=== PATIENT | male | born 1965 | race Hispanic/Latino ===

== ENCOUNTER 2021-09-27 21:22 | Emergency (ER) | payer BC ==
[2021-09-27] MEDS ORDERED: SODIUM CHLORIDE 0.9% 1000 ML 1,000 ML IV ONE (22:46)
[2021-09-27] MEDS ORDERED: ONDANSETRON 4 MG/2 ML INJ IV ONE (22:50)
--- NOTE | 2021-09-27 22:56 | Emergency Department Report ---
HPI - General Chief Complaint: Dizziness Time Seen by Provider: 09/27/21 22:34 - HPI HPI: Room 21 Patient is a 55-year-old male present with chief complaint of dizziness. Patient states he flew in from [facility] yesterday was at the airport prepar ng to leave back to [place]. Patient states at 1800 he consumed a tea the contained alicia, turmeric and CBD oil patient states approximate 1 hour later after eating some French food he began to feel dizzy and developed a dry mouth. The patient states he left the airport and went to his hotel and developed chills and felt "out of it." Patient states he has some nausea but no vomiting. Patient still complains of a dry mouth. Patient denies any other ingestions. Patient denies pruritus or rash. ED Past Medical Hx - Past Medical History Previous Medical History?: Yes Hx Hypertension: Yes Hx of Cancer: Yes (Melanoma, basal cell skin CA) - Surgical History Past Surgical History?: Yes Additional Surgical History: Excision of skin cancer - Family History Family history: no significant - Social History Smoking Status: Never Smoker Substance Use Type: None (Denies illicit drug use), Alcohol (Moderate) ED Review of Systems ROS: Stated complaint: DIZZY/DRYMOUTH Other details as noted in HPI Constitutional: chills Eyes: denies: eye pain ENT: other (Dry mouth) Respiratory: no symptoms reported Cardiovascular: palpitations Endocrine: no symptoms reported Gastrointestinal: nausea. denies: vomiting Genitourinary: denies: dysuria Musculoskeletal: denies: back pain Neurological: other (Dizziness). denies: headache Physical Exam - Physical Exam Vital Signs: Vital Signs 09/27/21 21:23 Temperature 98 F Pulse Rate 70 Respiratory 18 Rate Blood Pressure 140/90 O2 Sat by Pulse 96 Oximetry Physical Exam: GENERAL: The patient is well-developed well-nourished male lying on stretcher not appearing to be in acute distress. [] HEENT: Normocephalic. Atraumatic. Extraocular motions are intact. Patient has moist mucous membranes. No nystagmus noted NECK: Supple. Trachea midline CHEST/LUNGS: Clear to auscultation. There is no respiratory distress noted. HEART/CARDIOVASCULAR: Regular. There is no tachycardia. There is no gallop rub or murmur. ABDOMEN: Abdomen is soft, nontender. Patient has normal bowel sounds. There is no abdominal distention. SKIN: There is no rash. There is no edema. There is no diaphoresis. NEURO: The patient is awake, alert, and oriented. The patient is cooperative. The patient has no focal neurologic deficits. The patient has normal speech. Cranial nerves II through XII grossly intact. There is no dysmetria noted with finger-nose bilaterally. GCS 15 MUSCULOSKELETAL: There is no evidence of acute injury. ED Course Vital Signs 09/27/21 21:23 Temperature 98 F Pulse Rate 70 Respiratory 18 Rate Blood Pressure 140/90 O2 Sat by Pulse 96 Oximetry - Reevaluation(s) Reevaluation #1: 09/28/21 02:35 Patient states he feels improved ED Medical Decision Making - Lab Data Result diagrams: 09/27/21 22:56 09/27/21 22:56 Laboratory Tests 09/27/21 09/27/21 09/27/21 22:56 22:56 22:56 WBC 9.7 RBC 5.13 H Hgb 15.5 H Hct 46.4 H MCV 90 MCH 30 MCHC 33 RDW 13.3 Plt Count 150 Lymph % (Auto) 8.5 L [place]elf[place] % (Auto) 5.5 Eos % (Auto) 0.4 Baso % (Auto) 0.6 Lymph # (Auto) 0.8 L [place] # (Auto) 0.5 Eos # (Auto) 0.0 Baso # (Auto) 0.1 Seg Neutrophils % 85.0 H Seg Neutrophils # 8.3 H D-Dimer 150.21 Sodium 137 Potassium 4.7 Chloride 102.0 Carbon Dioxide 25 Anion Gap 15 BUN 16 Creatinine 1.2 Estimated GFR > 60 BUN/Creatinine Ratio 13 Glucose 129 H Calcium 9.5 Magnesium 2.10 Total Bilirubin 0.50 AST 26 ALT 31 Alkaline Phosphatase 96 Total Creatine Kinase 238 H CK-MB (CK-2) 3.9 CK-MB (CK-2) Rel Index 1.6 Troponin T < 0.010 Total Protein 6.8 Albumin 4.2 Albumin/Globulin Ratio 1.6 TSH Free T4 U Marijuana (THC) Screen Plasma/Serum Alcohol 09/27/21 09/27/21 09/28/21 22:56 22:56 02:01 WBC RBC Hgb Hct MCV MCH MCHC RDW Plt Count Lymph % (Auto) [place] % (Auto) Eos % (Auto) Baso % (Auto) Lymph # (Auto) [place] # (Auto) Eos # (Auto) Baso # (Auto) Seg Neutrophils % Seg Neutrophils # D-Dimer Sodium Potassium Chloride Carbon Dioxide Anion Gap BUN Creatinine Estimated GFR BUN/Creatinine Ratio Glucose Calcium Magnesium Total Bilirubin AST ALT Alkaline Phosphatase Total Creatine Kinase CK-MB (CK-2) CK-MB (CK-2) Rel Index Troponin T Total Protein Albumin Albumin/Globulin Ratio TSH 1.390 Free T4 1.02 U Marijuana (THC) Screen Presumptive positive Plasma/Serum Alcohol < 0.01 - EKG Data -: EKG Interpreted by Me EKG shows normal: sinus rhythm, axis Rate: normal - EKG Data When compared to previous EKG there are: previous EKG unavailable Interpretation: other (No ischemic changes seen) - Radiology Data Radiology results: report reviewed (CT head), image reviewed (CT head) [facility] [address] [place] [address] Cat Scan Report Signed Patient: TONI FERGUSON MR#: [id number] : 1965 Acct:[id number] Age/Sex: 55 / M ADM Date: 09/27/21 Loc: ED Attending Dr: Ordering Physician: DELMI FRY MD Date of Service: 09/27/21 Procedure(s): CT head/brain wo con Accession Number(s): [id number] cc: DELMI FRY MD NONENHANCED CT SCAN OF THE HEAD: INDICATION / CLINICAL INFORMATION: 55 years Male; Dizziness. TECHNIQUE: Routine CT head without contrast. All CT scans at this location are performed using CT dose reduction for ALARA by means of automated exposure control. COMPARISON: None. FINDINGS: BRAIN / INTRACRANIAL CONTENTS: No acute hemorrhage, mass effect, midline shift, hydrocephalus, or acute, large territorial infarct. No chronic infarct or focal atrophy. Normal brain volume and ventricular/sulcal size for age. No significant white matter abnormality. Temporal bones: Both internal auditory canals are patulous but symmetric; basal turn of cochlea normal; apical turn of cochlea not seen well; CT scan of the temporal bones could be arranged on an outpatient basis for further evaluation CRANIOCERVICAL JUNCTION: No significant abnormality. ORBITS: No significant abnormality of visualized orbits. SINUSES / MASTOIDS: No significant abnormality of the visualized paranasal sinuses or mastoid air cells. ADDITIONAL FINDINGS: None. IMPRESSION: No focal mass, hemorrhage, hydrocephalus, or acute, large territorial infarct. Apical turn of the cochlea not seen well; out patient high-resolution thin section CT scan of the temporal bone recommended Signer Name: Hansa Magana MD Signed: 09/28/2021 12:32 AM Workstation Name: [id number] Transcribed By: BS Dictated By: Hansa Wilson MD Electronically Authenticated By: Hansa Wilson MD Signed Date/Time: 09/28/2131 DD/ TD/TT: - Medical Decision Making CT report discussed with radiologist Dr. Gallo-states he was only looking for normal formation of the cochlea on the CT scans. This would be an elective outpatient follow-up scan if so desired - Differential Diagnosis CBD reaction, allergic reaction, PE, palpitations, symptomatic anemia, dehy Critical care attestation.: If time is entered above; I have spent that time in minutes in the direct care of this critically ill patient, excluding procedure time. ED Disposition Clinical Impression: Dizziness Disposition: 01 HOME / SELF CARE / HOMELESS Is pt being admited?: No Does the pt Need Aspirin: No Condition: Stable Instructions: Dizziness Additional Instructions: Return to the emergency department should you develop worsening symptoms, inability to tolerate food or liquids, high fever or any other concerns Referrals: PRIMARY CARE, [Referring] - 3-5 Days Time of Disposition: 02:37
[2021-09-27 23:21] VITALS: BP 122/69
[2021-09-27 23:39] LABS: Creatine Kinase MB 3.9 ng/mL (0.0-4.0)
[2021-09-27 23:40] LABS: Alanine Aminotransferase 31 units/L (7-56); Albumin 4.2 g/dL (3.9-5); BUN/Creatinine Ratio 13; Blood Urea Nitrogen 16 mg/dL (9-20); Calcium 9.5 mg/dL (8.4-10.2); Hemolysis Index 15
[2021-09-27 23:50] LABS: Free T4 (Free Thyroxine) 1.02 ng/dL (0.76-1.46)
[2021-09-28 00:29] LABS: Basophils # (Auto) 0.1 K/mm3 (0.0-0.1); Basophils % (Auto) 0.6 % (0.0-1.8); Eosinophils % (Auto) 0.4 % (0.0-4.3); Hematocrit 46.4 % (35.5-45.6); Hemoglobin 15.5 gm/dl (11.8-15.2); Lymphocytes # (Auto) 0.8 K/mm3 (1.2-5.4); Lymphocytes % (Auto) 8.5 % (13.4-35.0); Mean Corpuscular HGB Conc 33 % (32-34); Mean Corpuscular Volume 90 fl (84-94); Monocytes # (Auto) 0.5 K/mm3 (0.0-0.8); Monocytes % (Auto) 5.5 % (0.0-7.3); Platelet Count 150 K/mm3 (140-440); Red Blood Count 5.13 M/mm3 (3.65-5.03); Red Cell Distribution Width 13.3 % (13.2-15.2)
--- NOTE | 2021-09-28 00:36 | Cat Scan Report ---
NONENHANCED CT SCAN OF THE HEAD: INDICATION / CLINICAL INFORMATION: 55 years Male; Dizziness. TECHNIQUE: Routine CT head without contrast. All CT scans at this location are performed using CT dos e reduction for ALARA by means of automated exposure control. COMPARISON: None. FINDINGS: BRAIN / INTRACRANIAL CONTENTS: No acute hemorrhage, mass effect, midline shift, hydrocephalus, or acu te, large territorial infarct. No chronic infarct or focal atrophy. Normal brain volume and ventricul ar/sulcal size for age. No significant white matter abnormality. Temporal bones: Both internal auditory canals are patulous but symmetric; basal turn of cochlea aníbal l; apical turn of cochlea not seen well; CT scan of the temporal bones could be arranged on an outpat ient basis for further evaluation CRANIOCERVICAL JUNCTION: No significant abnormality. ORBITS: No significant abnormality of visualized orbits. SINUSES / MASTOIDS: No significant abnormality of the visualized paranasal sinuses or mastoid air tejinder ls. ADDITIONAL FINDINGS: None. IMPRESSION: No focal mass, hemorrhage, hydrocephalus, or acute, large territorial infarct. Apical turn of the cochlea not seen well; out patient high-resolution thin section CT scan of the tem poral bone recommended Signer Name: Hansa Magana MD Signed: 09/28/2021 12:32 AM Workstation Name: [id number]
[2021-09-28 02:29] LABS: Amphetamine Screen,Urine PRESUMPTIVE NEGATIVE; Benzodiazepines Screen,Urine PRESUMPTIVE NEGATIVE; Cannabinoid Screen,Urine PRESUMPTIVE POSITIVE; Cocaine Screen,Urine PRESUMPTIVE NEGATIVE; Methadone Screen,Urine PRESUMPTIVE NEGATIVE; Opiate Screen,Urine PRESUMPTIVE NEGATIVE
--- NOTE | 2021-09-29 19:36 | Electrocardiograph Report ---
[facility] Test Date: 2021-09-27 Test Time: 22:23:49 Pat Name: TONI FERGUSON Department: Room: Gender: M Schedule Checker: RKOKU : 1965 Requested By: EDLMI FRY Order Number: [id number] Reading MD: Ramakrishna Sevilla Measurements Intervals [place] Rate: 54 P: 56 DE: 155 QRS: 31 QRSD: 99 T: 50 QT: 419 QTc: 397 Interpretive Statements Sinus rhythm Low voltage, precordial leads No previous ECG available for comparison Electronically Signed On 09-29-2021 19:35:47 EDT by Ramakrishna Sevilla
== END 2021-09-28 03:30 | disposition home or self-care (01) ==
LOC: ED 21:22
DX: R42 Dizziness and giddiness (principal); I10 Essential (primary) hypertension; Z85.9 Personal history of malignant neoplasm, unspecified; Z79.899 Other long term (current) drug therapy
CPT/HCPCS: 36415; 70450; 80053; 80307; 82550; 82553; 83735; 84439; 84443; 84484; 85025; 85379; 93005; 96361; 96374; 99284; J2405; 80320; G0480